=== PATIENT | male | born 1955 | race African-American/Black ===

== ENCOUNTER 2018-06-16 13:10 | Inpatient (IN) | payer MEDICAID ==
[~2018-06-16] VITALS: Ht 185.4 cm; Wt 144.7 kg
[2018-06-16 14:41] LABS: HEMATOCRIT. 28.1 % (42.0-52.0); HEMOGLOBIN. 9.1 g/dL (14.0-18.0); MEAN CORPUSCULAR HEMOGLOBIN 28.1 pg (28.0-32.0); MEAN CORPUSCULAR VOLUME 86.8 fL (80.0-94.0); MEAN PLATELET VOLUME 7.5 fl (7.4-10.4); PLATELET 510 x1000/uL (130-400); RED BLOOD CELL COUNT 3.24 mill/uL (4.7-6.1); RED CELL DISTRIBUTION WIDTH 16.8 % (11.6-14.6)
[2018-06-16 14:56] LABS: CHLORIDE 105 mEq/L (98-107)
[2018-06-16 16:16] LABS: PLATELET ESTIMATE INCREASED
[2018-06-16] MEDS ORDERED: DOCU100T MT (22:47)
[2018-06-16] MEDS ORDERED: CLON-457 PO (22:47)
[2018-06-16] MEDS ORDERED: AMI2 PO (22:47)
[2018-06-16] MEDS ORDERED: LEVO250T2 PO (22:47)
[2018-06-16] MEDS ORDERED: ACET-2853 PO (22:47)
[2018-06-16] MEDS ORDERED: FERR325T6 PO (22:47)
[2018-06-16] MEDS ORDERED: DEXTROSE 50% WATER 50ML SYRINGE IV PRN (23:45)
[2018-06-17] VITALS (7 sets, daily range): BP systolic 140–162; BP diastolic 80–85
[2018-06-17] MEDS ORDERED: ACETAMINOPHEN 325MG TABLET PO PRN (04:00)
[2018-06-17] MEDS ORDERED: CLONIDINE 0.1MG TABLET PO PRN (04:00)
[2018-06-17 07:39] LABS: BASOPHILS % 0.7 % (0.0-2.0); EOSINOPHILS % 2.2 % (0.0-5.0); HEMATOCRIT. 25.4 % (42.0-52.0); HEMOGLOBIN. 8.1 g/dL (14.0-18.0); LYMPHOCYTES % 8.7 % (20.0-50.0); MEAN PLATELET VOLUME 7.8 fl (7.4-10.4); MONOCYTES % 8.9 % (2.0-8.0); NEUTROPHILS % 79.5 % (40.0-76.0); PLATELET 483 x1000/uL (130-400); RED BLOOD CELL COUNT 2.88 mill/uL (4.7-6.1); RED CELL DISTRIBUTION WIDTH 17.3 % (11.6-14.6)
[2018-06-17] MEDS: BLOOD SUGAR DIAGNOSTIC STRIP TEST SCH ×4 (07:40→21:30)
[2018-06-17] MEDS: INSULIN LISPRO 100 UNITS/ML SUBCUT SCH ×4 (08:10→22:13)
[2018-06-17 08:22] LABS: PHOSPHORUS 3.7 mg/dL (2.5-4.9)
[2018-06-17] MEDS: DOCUSATE SODIUM 100MG CAPSULE PO SCH ×2 (08:51→17:33)
[2018-06-17] MEDS: FERROUS SULFATE 325MG TABLET PO SCH ×3 (08:51→17:55)
[2018-06-17] MEDS ORDERED: AMIODARONE HCL 200 MG TABLET PO SCH (09:00)
[2018-06-17] MEDS ORDERED: FUROSEMIDE 80MG TABLET PO SCH (09:00)
[2018-06-17] MEDS ORDERED: LEVOFLOXACIN 250MG TABLET PO SCH (11:00)
[2018-06-17] MEDS ORDERED: HEPARIN SODIUM 1,000 UNIT/1ML VIAL IV SCH (12:30)
[2018-06-17] MEDS: DEXTROSE 5% IV SCH ×2 (17:41→20:55)
[2018-06-17] MEDS: CLINDAMYCIN IV SCH ×2 (17:41→20:55)
[2018-06-17] MEDS: WATER IV SCH ×2 (17:41→20:55)
[2018-06-17] MEDS: AMLODIPINE 10MG TABLET PO SCH (20:53)
[2018-06-17] MEDS ORDERED: INSULIN GLARGINE UD 100 UNITS/ML SYR SUBCUT SCH (22:00)
[2018-06-18] VITALS (7 sets, daily range): BP systolic 143–190; BP diastolic 75–96
[2018-06-18 07:28] LABS: BASOPHILS % 0.5 % (0.0-2.0); EOSINOPHILS % 1.3 % (0.0-5.0); HEMATOCRIT. 29.9 % (42.0-52.0); HEMOGLOBIN. 9.5 g/dL (14.0-18.0); LYMPHOCYTES % 9.1 % (20.0-50.0); MEAN CORPUSCULAR HEMOGLOBIN 27.8 pg (28.0-32.0); MEAN CORPUSCULAR VOLUME 87.8 fL (80.0-94.0); MEAN PLATELET VOLUME 7.7 fl (7.4-10.4); MONOCYTES % 9.2 % (2.0-8.0); NEUTROPHILS % 79.9 % (40.0-76.0); PLATELET 481 x1000/uL (130-400); RED CELL DISTRIBUTION WIDTH 16.7 % (11.6-14.6)
[2018-06-18] MEDS: BLOOD SUGAR DIAGNOSTIC STRIP TEST SCH ×4 (08:04→20:31)
[2018-06-18] MEDS: AMLODIPINE 10MG TABLET PO SCH (09:15)
[2018-06-18] MEDS: WATER IV SCH ×3 (09:15→22:21)
[2018-06-18] MEDS: DOCUSATE SODIUM 100MG CAPSULE PO SCH ×2 (09:15→17:59)
[2018-06-18] MEDS: FERROUS SULFATE 325MG TABLET PO SCH ×3 (09:15→17:59)
[2018-06-18] MEDS: DEXTROSE 5% IV SCH ×3 (09:15→22:21)
[2018-06-18] MEDS: CLINDAMYCIN IV SCH ×3 (09:15→22:21)
[2018-06-18] MEDS: INSULIN LISPRO 100 UNITS/ML SUBCUT SCH ×4 (09:16→20:31)
[2018-06-18] MEDS ORDERED: HEPARIN SODIUM 1,000 UNIT/1ML VIAL IV NR (15:45)
[2018-06-19] VITALS (7 sets, daily range): BP systolic 137–149; BP diastolic 68–90
[2018-06-19] MEDS: WATER IV SCH ×2 (05:10→15:35)
[2018-06-19] MEDS: CLINDAMYCIN IV SCH ×2 (05:10→15:35)
[2018-06-19] MEDS: DEXTROSE 5% IV SCH ×2 (05:10→15:35)
[2018-06-19 07:36] LABS: BASOPHILS % 0.8 % (0.0-2.0); EOSINOPHILS % 1.7 % (0.0-5.0); HEMATOCRIT. 26.5 % (42.0-52.0); HEMOGLOBIN. 8.3 g/dL (14.0-18.0); LYMPHOCYTES % 8.6 % (20.0-50.0); MEAN CORPUSCULAR HEMOGLOBIN 27.5 pg (28.0-32.0); MEAN CORPUSCULAR VOLUME 87.7 fL (80.0-94.0); MEAN PLATELET VOLUME 7.7 fl (7.4-10.4); MONOCYTES % 10.7 % (2.0-8.0); NEUTROPHILS % 78.2 % (40.0-76.0); PLATELET 475 x1000/uL (130-400); RED BLOOD CELL COUNT 3.02 mill/uL (4.7-6.1); RED CELL DISTRIBUTION WIDTH 16.6 % (11.6-14.6)
[2018-06-19] MEDS: BLOOD SUGAR DIAGNOSTIC STRIP TEST SCH ×3 (07:40→17:38)
[2018-06-19] MEDS: DOCUSATE SODIUM 100MG CAPSULE PO SCH ×2 (09:46→17:25)
[2018-06-19] MEDS: FERROUS SULFATE 325MG TABLET PO SCH ×3 (09:47→18:32)
[2018-06-19] MEDS: AMLODIPINE 10MG TABLET PO SCH (09:48)
[2018-06-19] MEDS: INSULIN LISPRO 100 UNITS/ML SUBCUT SCH ×3 (09:52→17:38)
== END 2018-06-19 20:55 | DRG 720 ==
LOC: ER 13:10 → 7WST 15:02 → ENRESERV 19:39
PROVIDERS: ADMIT Internal Medicine; ATTEND Internal Medicine
PROC: 5A1D70Z Performance of Urinary Filtration, Intermittent, Less than 6 Hours Per Day (ICD-10-PCS; principal; 2018-06-17)
PROC: 5A1D70Z Performance of Urinary Filtration, Intermittent, Less than 6 Hours Per Day (ICD-10-PCS; 2018-06-18)
DX: A41.9 Sepsis, unspecified organism (principal); E43 Unspecified severe protein-calorie malnutrition; L89.150 Pressure ulcer of sacral region, unstageable; J84.9 Interstitial pulmonary disease, unspecified; D69.6 Thrombocytopenia, unspecified; E11.22 Type 2 diabetes mellitus with diabetic chronic kidney disease; E11.42 Type 2 diabetes mellitus with diabetic polyneuropathy; E11.622 Type 2 diabetes mellitus with other skin ulcer; E66.01 Morbid (severe) obesity due to excess calories; I12.0 Hypertensive chronic kidney disease with stage 5 chronic kidney disease or end stage renal disease; L03.115 Cellulitis of right lower limb; E87.70 Fluid overload, unspecified; N18.6 End stage renal disease; D64.9 Anemia, unspecified; L03.116 Cellulitis of left lower limb; E78.5 Hyperlipidemia, unspecified; L98.499 Non-pressure chronic ulcer of skin of other sites with unspecified severity; F12.10 Cannabis abuse, uncomplicated; I44.0 Atrioventricular block, first degree; I45.89 Other specified conduction disorders; I48.91 Unspecified atrial fibrillation; I48.92 Unspecified atrial flutter; I89.0 Lymphedema, not elsewhere classified; J44.9 Chronic obstructive pulmonary disease, unspecified; M10.9 Gout, unspecified; Z68.41 Body mass index [BMI] 40.0-44.9, adult; Z83.3 Family history of diabetes mellitus; Z87.891 Personal history of nicotine dependence; Z99.2 Dependence on renal dialysis
CPT/HCPCS: 36415; 71045; 80048; 82962; 83036; 83735; 84100; 84134; 93005; 97022; 97162; 97166; 97530; 99285; J1644; J1815; J3490; J7030; J7060